=== PATIENT | female | born 1990 | race Two or more races ===

== ENCOUNTER 2024-11-10 03:12 | Emergency (ER) | payer BC ==
[~2024-11-10] VITALS: Ht 149.9 cm; Wt 93.6 kg
[2024-11-10 04:40] LABS: Urine Bacteria FEW /hpf (None Seen); Urine Blood Negative /uL (Negative); Urine Clarity Clear (Clear); Urine Color Yellow (Yellow); Urine Mucus FEW (None Seen); Urine Protein, UAD TRACE (Negative); Urine Specific Gravity 1.036 (1.001-1.035); Urine Squamous Epithelial Cell FEW /hpf (<5); Urine Urobilinogen Normal (Negative); Urine WBC 3 /HPF (0-5); Urine pH 5.5 (5.0-9.0)
--- NOTE | 2024-11-10 05:55 | DVH ---
EXAM: CT Abdomen and Pelvis Without Intravenous Contrast CLINICAL INDICATION: low abd pain TECHNIQUE: Axial computed tomography images of the abdomen and pelvis without intravenous contrast. This CT exam was performed using one or more of the following dose reduction techniques: automated exposure control, adjustment of the mA and/or kV according to patient size, and/or use of iterative r econstruction technique. CONTRAST: RADIATION DOSE: CTDIvol = 21.04 mGy, DLP = 1158.83 mGy-cm COMPARISON: None FINDINGS: LUNG BASES: Unremarkable. No mass. No consolidation. ABDOMEN: LIVER: Unremarkable. GALLBLADDER AND BILE DUCTS: Unremarkable. No calcified stones. No ductal dilation. PANCREAS: Unremarkable. No ductal dilation. SPLEEN: Unremarkable. No splenomegaly. ADRENALS: Unremarkable. No mass. KIDNEYS AND URETERS: Punctate right nephrolithiasis without hydronephrosis. STOMACH AND BOWEL: Unremarkable. No obstruction. No mucosal thickening. PELVIS: APPENDIX: No findings to suggest acute appendicitis. BLADDER: Unremarkable. No stones. REPRODUCTIVE: Nonspecific soft tissue isodense lesion in the mid abdomen measuring up to 7.2 cm. As sociated lobulated enlarged uterus. This could be part of uterine fibroids. Further evaluation is pace ited without IV contrast. ABDOMEN and PELVIS: INTRAPERITONEAL SPACE: Unremarkable. No free air. No significant fluid collection. BONES/JOINTS: No acute fracture. No dislocation. SOFT TISSUES: Unremarkable. VASCULATURE: Unremarkable. No abdominal aortic aneurysm. LYMPH NODES: Unremarkable. No enlarged lymph nodes. OTHER FINDINGS: . . IMPRESSION: 1. Nonspecific soft tissue isodense lesion in the mid abdomen measuring up to 7.2 cm. Associated lob ulated enlarged uterus. This could be part of uterine fibroids. Further evaluation is limited without IV contrast. 2. Punctate right nephrolithiasis without hydronephrosis.
--- NOTE | 2024-11-10 07:23 | DVH ---
EXAM: US Pelvis Transabdominal, Complete CLINICAL INDICATION: low abd pain TECHNIQUE: Real-time complete transabdominal pelvic ultrasound with image documentation. COMPARISON: None FINDINGS: UTERUS/CERVIX: Multiple uterine fibroids largest measuring up to 7.6 cm. The uterus measures 16.3 x 12.2 x 8.5 cm. The endometrial stripe measures 0.6 cm in thickness. RIGHT OVARY: 1.9 cm simple right ovarian cyst. Normal blood flow. The right ovary measures 4.8 x 2.5 x 2.2 cm. LEFT OVARY: Left ovary not visualized. FREE FLUID: No free fluid. BLADDER: Unremarkable as visualized. Wall is normal thickness for degree of distention. OTHER FINDINGS: . IMPRESSION: Uterine fibroids.
[2024-11-10 07:32] VITALS: BP 123/71; PULSE 82; RESP 17; TEMP 97.7; O2SAT 100
[2024-11-10 07:49] LABS: Basophils # (auto) 0.1 10 ^3/uL (0-0.2); Basophils % (auto) 0.6 % (0.0-2.0); Eosinophils # (auto) 0.2 10 ^3/uL (0-0.8); Eosinophils % (auto) 1.9 % (0.0-7.0); Hematocrit 42.8 % (36.0-46.0); Hemoglobin 14.1 g/dL (12.2-16.2); Lymphocytes # (auto) 2.9 10 ^3/uL (0.4-5.4); Mean Corpuscular Hemoglobin 28.6 pg (28.0-32.0); Mean Corpuscular Volume 86.6 fL (80.0-100.0); Monocytes # (auto) 0.8 10 ^3/uL (0-1.3); Monocytes % (auto) 7.7 % (0.0-12.0); Neutrophils % (auto) 60.8 % (37.0-80.0); Nucleated Red Blood Cells % 0.1 %; Platelet Count (auto) 314 10^3/uL (140-450); Red Blood Cells 4.95 10^6/uL (4.0-5.20); Red Cell Distribution Width 16.1 % (11.8-14.3); White Blood Cell 9.9 10^3/uL (4.4-10.8)
[2024-11-10 08:04] LABS: Alanine Aminotransferase 11 U/L (7-40); Albumin 4.6 g/dL (3.2-4.8); Alkaline Phosphatase 96 U/L (46-116); Anion Gap 10 (5-15); Aspartate Aminotransferase 17 U/L (13-40); BUN/Creatinine Ratio 12.5 (10.0-20.0); Blood Urea Nitrogen 8 mg/dL (9-23); Calcium 9.7 mg/dL (8.7-10.4); Carbon Dioxide 21 mmol/L (20-31); Chloride 105 mmol/L (98-107); Glucose 94 mg/dL (74-106); Potassium 3.7 mmol/L (3.5-5.1); Sodium 136 mmol/L (136-145); Total Protein 7.8 g/dL (5.7-8.2)
[2024-11-10 08:05] LABS: Bilirubin, Total 0.6 mg/dL (0.2-1.0)
--- NOTE | 2024-11-10 08:43 | ED.PDOC ---
GI ASSESSMENT HPI Comments 34 year old female presents to the ED with chief complaint of abdominal pain. Patient reports that she has been experiencing intermittent suprapubic abdominal pain for the past 5 months, worse on her right side. Patient relays that she has not visited an OBGYN in some time, only recently having her Pap Smear performed last week with no results yet. Patient notes during her menstrual cycle, her pain is worse. Patient denies any N/V/D, constipation, dizziness, fever, chills, dysuria, or hematuria. Chief Complaint: Abdominal Pain Time Seen by MD: 08:39 Reviewed Notes: Nurses Notes, Medications, Allergies Allergies: Coded Allergies: NO KNOWN ALLERGIES (Unverified , 11/10/24) Information Source: Patient Mode of Arrival: Ambulatory Timing: Months Duration: Intermittent Prehospital treatment: None Quality: Cramping Vomitus: None Stool: Normal Severity: Moderate Recent: None Recent Hx of: None Pain Location: Suprapubic Modifying Factors: Nothing Associated sign and symptoms: Abdominal Pain Past Medical History PAST MEDICAL HISTORY: Denies Surgical History: Denies all surgeries MOUSE BREEDER History: No Pertinent MOUSE BREEDER History Family History Family History: Reviewed,noncontributory to illness Social History Smoker: Non-Smoker Alcohol: Denies ETOH Use Drugs: Denies Drug Use Lives In: Home Constitutional: denies: chills, diaphoresis, fatigue, fever, malaise, sweats, weakness, others EENTM: denies: blurred vision, double vision, ear bleeding, ear discharge, ear drainage, ear pain, ear ringing, eye pain, eye redness, hearing loss, mouth pain, mouth swelling, nasal discharge, nose bleeding, nose congestion, nose pain, photophobia, tearing, throat pain, throat swelling, voice changes, others Respiratory: denies: cough, hemoptysis, orthopnea, SOB at rest, shortness of breath, SOB with excertion, stridor, wheezing, others Cardiovascular: denies: chest pain, dizzy spells, diaphoresis, Dyspnea on exertion, edema, irregular heart beat, left arm pain, lightheadedness, palpitations, PND, syncope, others Gastrointestinal: reports: abdominal pain; denies: abdomen distended, blood streaked bowels, constipated, diarrhea, dysphagia, difficulty swallowing, h ematemesis, melena, nausea, poor appetite, poor fluid intake, rectal bleeding, rectal pain, vomiting, others Genitourinary: denies: abnormal vagina bleeding, burning, dyspareunia, dysuria, flank pain, frequency, hematuria, incontinence, pain, , vagina discharge, urgency, others Neurological: denies: dizziness, fainting, headache, left sided numbness, left sided weakness, numbness, paresthesia, pre-existing deficit, right sided numbness, right sided weakness, seizure, speech problems, tingling, tremors, weakness, others Musculoskeletal: denies: back pain, gout, joint pain, joint swelling, muscle pain, muscle stiffness, neck pain, others Integumetry: denies: bruises, change in color, change in hair/nails, dryness, laceration, lesions, lumps, rash, wounds, others Allergic/Immunocompromised: denies: Difficulty Healing, Frequent Infections, Hives, Itching, others Hematologic/Lymphatic: denies: anemia, blood clots, easy bleeding, easy bruising, swollen glands, others Endocrine: denies: excessive hunger, excessive sweating, excessive thirst, excessive urination, flushing, intolerance to cold, intolerance to heat, unexplained weight gain, unexplained weight loss, others Psychiatric: denies: anxiety, bipolar disorder, depression, hopeless, panic disorder, schizophrenia, sleepless, suicidal, others All Other Systems: Reviewed and Negative Physical Exam General Appearance: No Apparent Distress, Normal HEENT: Normal ENT Inspection, Pharynx Normal, TMs Normal Neck: Full Range of Motion, Non-Tender, Normal, Normal Inspection Respiratory: Chest Non-Tender, Lungs Clear, No Accessory Muscle Use, No Respi ratory Distress, Normal Breath Sounds Cardiovascular: No Edema, No JVD, No Murmur, No Gallop, Normal Peripheral Pulses, Regular Rate/Rhythm Breast Exam: Deferred Gastrointestinal: No Organomegaly, No Pulsatile Mass, Normal Bowel Sounds, Soft, Tenderness (Suprapubic abdominal tenderness) Genitalia: Deferred Pelvic: Deferred Rectal: Deferred Extremities: No calf tenderness, Normal capillary refill, Normal inspection, Normal range of motion, Non-tender, No pedal edema Musculoskeletal : Apperance: Normal Neurologic: Alert, sewer tapper II-XII nml as Tested, No Motor Deficits, Normal Affect, Normal Mood, No Sensory Deficits Cerebellar Function: Normal Reflexes: Normal Skin: Dry, Normal Color, Warm Lymphatic: No Adenopathy Was a procedure done? Was a procedure done?: No GI differential Dx Differential Diagnosis: Gastritis/PUD, GI hemorrhage, Urolithiasis, Dehydration X-Ray, Labs, Meds, VS Vital Signs Date Time Temp Pulse Resp B/P (MAP) Pulse Ox O2 Delivery O2 Flow Rate FiO2 11/10/24 07:32 97.7 82 17 123/71 (88) 100 97.7 11/10/24 05:18 100 20 100 Room Air 11/10/24 05:18 97.5 100 20 140/83 (102) 100 97.5 11/10/24 03:34 98.3 118 16 120/78 (92) 98 98.3 Lab Test 11/10/24 07:20 11/10/24 03:40 Range/Units White Blood Count 9.9 4.4-10.8 10^3/uL Red Blood Count 4.95 4.0-5.20 10^6/uL Hemoglobin 14.1 12.2-16.2 g/dL Hematocrit 42.8 36.0-46.0 % Mean Corpuscular Volume 86.6 80.0-100.0 fL Mean Corpuscular Hemoglobin 28.6 28.0-32.0 pg Mean Corpuscular Hemoglobin Concent 33.0 32.0-36.0 g/dL Red Cell Distribution Width 16.1 H 11.8-14.3 % Platelet Count 314 140-450 10^3/uL Mean Platelet Volume 8.3 6.9-10.8 fL Neutrophils (%) (Auto) 60.8 37.0-80.0 % Lymphocytes (%) (Auto) 29.0 10.0-50.0 % Monocytes (%) (Auto) 7.7 0.0-12.0 % Eosinophils (%) (Auto) 1.9 0.0-7.0 % Basophils (%) (Auto) 0.6 0.0-2.0 % Neutrophils # (Auto) 6.0 1.6-8.6 10 ^3/uL Lymphocytes # (Auto) 2.9 0.4-5.4 10 ^3/uL Monocytes # (Auto) 0.8 0-1.3 10 ^3/uL Eosinophils # (Auto) 0.2 0-0.8 10 ^3/uL Basophils # (Auto) 0.1 0-0.2 10 ^3/uL Nucleated Red Blood Cells 0.1 % Sodium Level 136 136-145 mmol/L Potassium Level 3.7 3.5-5.1 mmol/L Chloride Level 105 98-107 mmol/L Carbon Dioxide Level 21 20-31 mmol/L Anion Gap 10 5-15 Blood Urea Nitrogen 8 L 9-23 mg/dL Creatinine 0.64 0.550-1.02 mg/dL Glomerular Filtration Rate Calc 118 >90 mL/min BUN/Creatinine Ratio 12.5 10.0-20.0 Serum Glucose 94 74-106 mg/dL Calcium Level 9.7 8.7-10.4 mg/dL Total Bilirubin 0.6 0.2-1.0 mg/dL Aspartate Amino Transferase (AST) 17 13-40 U/L Alanine Aminotransferase (ALT) 11 7-40 U/L Alkaline Phosphatase 96 46-116 U/L Total Protein 7.8 5.7-8.2 g/dL Albumin 4.6 3.2-4.8 g/dL Urine Color Yellow Yellow Urine Clarity Clear Clear Urine pH 5.5 5.0-9.0 Urine Specific [place] 1.036 H 1.001-1.035 Urine Protein Trace H Negative Urine Ketones Negative Negative Urine Blood Negative Negative /uL Urine Nitrite Negative Negative Urine Bilirubin Negative Negative Urine Urobilinogen Normal Negative mg/dL Urine Leukocyte Esterase Negative Negative /uL Urine RBC 2 0 - 4 /hpf Urine Microscopic WBC 3 0-5 /HPF Urine Squamous Epithelial Cells Few <5 /hpf Urine Bacteria Few H None Seen /hpf Urine Mucus Few None Seen Urine Glucose Trace Normal mg/dL Urine Test Negative Negative Pelvic US: FINDINGS: UTERUS/CERVIX: Multiple uterine fibroids largest measuring up to 7.6 cm. The uterus measures 16.3 x 12.2 x 8.5 cm. The endometrial stripe measures 0.6 cm in thickness. RIGHT OVARY: 1.9 cm simple right ovarian cyst. Normal blood flow. The right ovary measures 4.8 x 2.5 x 2.2 cm. LEFT OVARY: Left ovary not visualized. FREE FLUID: No free fluid. BLADDER: Unremarkable as visualized. Wall is normal thickness for degree of distention. OTHER FINDINGS: . IMPRESSION: Uterine fibroids. Abd/Pel: FINDINGS: LUNG BASES: Unremarkable. No mass. No consolidation. ABDOMEN: LIVER: Unremarkable. GALLBLADDER AND BILE DUCTS: Unremarkable. No calcified stones. No ductal dilation. PANCREAS: Unremarkable. No ductal dilation. SPLEEN: Unremarkable. No splenomegaly. ADRENALS: Unremarkable. No mass. KIDNEYS AND URETERS: Punctate right nephrolithiasis without hydronephrosis. STOMACH AND BOWEL: Unremarkable. No obstruction. No mucosal thickening. PELVIS: APPENDIX: No findings to suggest acute appendicitis. BLADDER: Unremarkable. No stones. REPRODUCTIVE: Nonspecific soft tissue isodense lesion in the mid abdomen measuring up to 7.2 cm. Associated lobulated enlarged uterus. This could be part of uterine fibroids. Further evaluation is limited without IV contrast. ABDOMEN and PELVIS: INTRAPERITONEAL SPACE: Unremarkable. No free air. No significant fluid collection. BONES/JOINTS: No acute fracture. No dislocation. SOFT TISSUES: Unremarkable. VASCULATURE: Unremarkable. No abdominal aortic aneurysm. LYMPH NODES: Unremarkable. No enlarged lymph nodes. OTHER FINDINGS: . . IMPRESSION: 1. Nonspecific soft tissue isodense lesion in the mid abdomen measuring up to 7.2 cm. Associated lobulated enlarged uterus. This could be part of uterine fibroids. Further evaluation is limited without IV contrast. 2. Punctate right nephrolithiasis without hydronephrosis. Time of 1ST Reevaluation: 09:00 Reevaluation 1ST: Improved Patient Education/Counseling: Diagnosis, Treatment Family Education/Counseling: No Family Present Additional Information Previous visits reviewed: none The following tests were ordered, and results were reviewed by me: Preg Urine, CBC, CMP, UA, CT Abd/Pel, Pelvic US Additional Information was gathered from interviewing the following independent historians: None I reviewed and agreed with the following test results read by other providers: CT Abd/Pel, Pelvic US I discussed treatment and results with medical personnel and: patient Comprehensive systems review obtained and negative except for what is stated in the HPI. Departure 1 Departure Time of Disposition: 08:58 (Patient presented with abdominal pain that was concerning for possible appendicits, gastritis, cholecystitis, colitis, earl roenteritis, or orther possible surgical emergency. Data: 1. I ordered and reviewed the result of at least 3 labs including a CBC, BMP, and Urinalysis. 2. I independently interpreted the following tests: CT Abdoment and Pelvis is concerning for fibroids .Risk:This patient has a high risk of morbidity due to further diagnostic testing or treatment and may suffer from an acute abdominal process disorder. Fortunately workup reveals likely fibroids and patient can be safely discharged to home with outpatient follow up.) Impression: Primary Impression: Fibroids Additional Impression: Abdominal mass Qualified Codes: R19.07 - Generalized intra-abdominal and pelvic swelling, mass and lump Disposition: HOME / SELF CARE / HOMELESS Condition: Stable Referrals: WALLACE BARRERA DO Additional Instructions: Your blood work and urine were normal. Your CT scan was concerning for an abdominal mass that appears likely to be fibroids. You were referred to OBGYN. Please call for an appointment. For pain you can take the followinam: Ibuprofen 400mg with food Noon: Acetaminophen 1000mg 4pm: Ibuprofen 400mg with food 8pm: Acetaminophen 1000mg You were prescribed oxycodone to take as needed for breakthrough pain. You should follow up with your regular doctor within one week to ensure you are doing better. If your symptoms worsen or you have any other concerns then please return to the ER. e-Prescriptions Oxycodone HCl (Oxycodone Hydrochloride) 5 Mg Tab 5 MG PO QID PRN for 5 Days, #20 TAB Prov: JESSY CH MD 11/10/24 Discharged With: Self Critical Care Note Critical Care Time?: No Stability Stability form required: No Heart Score Heart Score: Heart Score Response (Comments) Value History N/A 0 EKG N/A 0 Age N/A 0 Risk Factors N/A 0 Troponin N/A 0 Total 0 I personally scribed for JESSY CH MD ([email or web address]) on 11/10/24 at 08:43. Electronically submitted by Shay Ramos ([email or web address]). JESSY CH MD November 10, 2024 08:43
[2024-11-10] MEDS ORDERED: OXYC-900 PO (09:00)
[2024-11-10] MEDS: HYDROcodone-ACET 10/325MG TAB PO ONE (09:16)
== END 2024-11-10 09:19 | disposition home or self-care (01) ==
LOC: ER 03:16
DX: D25.9 Leiomyoma of uterus, unspecified (principal); R19.00 Intra-abdominal and pelvic swelling, mass and lump, unspecified site
CPT/HCPCS: 36415; 74176; 76856; 80053; 81001; 81025; 85025